=== PATIENT | female | born 1950 | race Caucasian/White ===

== ENCOUNTER 2016-05-07 17:00 | Inpatient (IN) | payer MEDICARE, MEDICAID ==
--- NOTE | 2016-05-07 17:14 | HP ---
SUPERVISING PHYSICIAN: Jorge Zuniga MD CHIEF COMPLAINT: Increase in peripheral edema to the lower bilateral extremities and low potassium. HISTORY OF PRESENT ILLNESS: Ms. Elaine is a 66-year-old, female patient who was referred from the clinic by Yolande Mcgee NP, for concern for hypokalemia. The patient was being seen in the walk-in clinic for lower extremity edema. Laboratory studies were completed showing that she had a potassium of 2.1. Yolande notified Dr. Lee of the findings who suggested the patient be admitted to the hospital for further examination, workup and replacement of potassium. The patient has not been under any medical care for many years. She takes no chronic medications. She notes in the s, she had some significant problems with her gallbladder when she had to have a cholecystectomy after a common bile duct stone had been passed and resulted in the gallbladder becoming infected and causing complications with both the gallbladder and liver requiring cholecystectomy with a quarter removal of one lobe of her liver at age 16. She also notes that after that surgery she had complications with some gastrointestinal bleeding, hiatal hernias, and what they that was gastric ulcers. In 1971, she had approximately 70% of her stomach removed with anastomosis to the small intestine. She thinks she had a hiatal hernia that perforated resulting in complications and therefore the surgery was completed. She notes since the surgery in 1971 she has had chronic diarrhea, but has learned to deal with it, but within the last several months, she has noticed she has been having some issues with the diarrhea and in the last two weeks noted that her legs had begun to start swelling. She denied any exertional dyspnea, chest pains, or palpitations. She also noted that she felt like her abdomen was increasing in size. She normally weighs just a little over 100 pounds and she says she has noted she has gained just under 20 pounds in the last two weeks. The patient also notes that at some point she was diagnosed with rheumatoid arthritis and has not been treated in multiple years due to complications of treatment she received when she was first diagnosed. She was referred to the hospital for direct admission. She was admitted to the Medical/Surgical Floor in stable condition for continuation of workup and treatment of the hypokalemia. PAST MEDICAL HISTORY: No chronic illnesses. She has not been under the care of a physician for many years. She reports the chronic diarrhea secondary to the complications of the surgery mentioned above in 1969 and 1971. PAST SURGICAL HISTORY: 1. Cholecystectomy, complications from a common bile duct stones. 2. Removal of a quarter of her liver at age 16 secondary to an infection and complications from gallbladder. 3. Gastrotomy with approximately 70% of stomach removed along with a hiatal hernia, complications from perforation with anastomosis to the small intestine in 1971. CURRENT MEDICATIONS: The patient denies any chronic medications or over-the- counter supplements or medications on a regular basis. She denies any use of Tylenol or NSAIDs. ALLERGIES: NO KNOWN DRUG ALLERGIES. FAMILY HISTORY: Positive for diabetes and rheumatoid arthritis. SOCIAL HISTORY: The patient lives in [place]. She is . 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 She notes she did smoke approximately three packs a day at a young age up until 1987 when she stopped smoking. She denies any alcohol or illicit drug use. REVIEW OF SYSTEMS: CONSTITUTIONAL: Denies any fevers, chills, but notes she has had an unintentional weight gain over the last two of a total of approximately 20 pounds. HEENT: Denies significant history of allergic rhinitis, epistaxis or sinus disease. No significant hearing or visual disturbances. RESPIRATORY: Denies any shortness of breath with exertion, cough , hemoptysis. CARDIOVASCULAR: Denies significant history of chest pain, palpitations, syncopal episodes or near syncopal episodes. GASTROINTESTINAL: As noted in history of present illness, chronic diarrhea secondary to partial gastrotomy in 1971, but no reported abdominal pains, nausea or vomiting. GENITOURINARY: Denies dysuria, but reports she has been having some decreased frequency at night and some incontinence. EXTREMITIES: Significant for increasing peripheral edema in the last two weeks extending proximally to the knees, but denies any other edema. There is no history of strokes or muscle weakness, but does note that she had arthritis, she says rheumatoid, at a younger age, but she no longer seeks treatment. NEUROLOGIC: Denies headaches, acute changes, visual disturbances, syncopal episodes or other neurologic deficits. PHYSICAL EXAMINATION: VITAL SIGNS: Temperature 98.8. Pulse 80. Blood pressure 182/83. Respirations 20, unlabored. O2 saturation 98% on room air. Admission weight 54.2 kg. GENERAL: The patient appears to be well-nourished, hydrated, well kept, in no apparent distress. HEENT: Tympanic membranes clear bilaterally. Oropharynx is pink, moist without any lesions. NECK: No jugular venous distention noted. CHEST: Lungs clear to auscultation bilaterally without any appreciable rhonchi, wheezes, or rales. CARDIOVASCULAR: Regular rate and rhythm with a systolic murmur noted, grade III /. ABDOMEN: Mildly distended, but soft with some tenderness to deep palpation to the mid abdomen area just below the umbilicus. No masses are felt. Positive bowel sounds. EXTREMITIES: 3+ pitting edema from feet to just below the patellar region with distal pulses being 2+ bilaterally. INTEGUMENTARY: No lesions noted. Skin is dry and pink. NEUROLOGIC: The patient is alert and oriented times three. Cranial nerves II- XII are grossly intact. Extraocular movements are within normal limits. There is no nystagmus. Facial features are symmetrical. There is no detectable motor deficits or reported sensory neuromotor deficits. LABORATORY: CBC shows white count 6.1, hemoglobin 12.2, hematocrit 35.7, platelet count 164,000, differential within normal limits. Coagulation studies show slightly elevated PT of 16.6, normal PT-T 33.7. Chemistries show a low sodium of 132, potassium decreased to 2.1, carbon dioxide 26, BUN less than 5, creatinine 0.69, glucose 126, calcium 7.9, bilirubin slightly elevated at 1.5, AST elevated at 55, ALT normal at 26, alkaline phosphatase normal at 110. CPK elevated at 196, troponin less than 0.02, serum total protein low at 5.5, albumin low at 2.0. Urine showed just a trace lysed blood on dipstick with microscopic being within normal limits. EKG shows normal sinus rhythm without any ST changes or T-wave inversions. RADIOLOGY: Two view chest x-ray per radiology interpretation shows no acute findings, no discrete air space infiltrates, pleural effusions, pneumothorax. There is note of bilateral interstitial prominence with pulmonary vascular normal. ASSESSMENT: 1. Electrolyte imbalance with severe hypokalemia and hypomagnesemia, unsure of etiology, possibly secondary to fluid overload, possibly secondary to some early liver dysfunction with an elevated AST and mildly elevated total bilirubin. 2. New onset peripheral edema with acute weight gain of approximately 20 pounds in the last two weeks with the patient having no history of congestive heart failure. 3. Moderate proteinemia with albumin 2.0, possibly contributing to #1, resulting in some third spacing in the presence of elevated liver function, history of previous liver surgery with the patient having some notable ascites on physical examination. 4. Elevated BNP with the patient having a systolic murmur, but no history of congestive heart failure. No echocardiogram for review. The patient without any significant exertional dyspnea. 5. Hypertension, uncontrolled. 6. History of rheumatoid arthritis. PLAN: The patient will be placed in observation tonight for close observation and replacement of her potassium and magnesium. She is asymptomatic at this time and has no shortness of breath. We will plan to give her 40 mg potassium through K-rider as tolerated as well as give her 2 grams of magnesium IV. The patient will need repeat laboratory studies in the morning for recheck of potassium. The patient will certainly need extensive followup on laboratory studies which possibly could be done in the outpatient setting if the patient seems to be stable at this time and has no significant complaints other than findings on examination demonstrated some mild abdominal discomfort with palpation which the patient was actually unaware that she had any pain until examination. Consideration for CT of the abdomen in the morning to further investigate the source of abdominal pain and certainly possibility of an echocardiogram and ultrasound of the liver at some point. She will need to be established with a primary care provider in the near future for close followup. She is stable at this point and anticipate length of stay to be one to two days with continuation of potassium and monitoring in the outpatient setting. Until discharge, we will continue to monitor the patient closely and treat appropriately. #[id number] [facility]
[2016-05-07] MEDS ORDERED: NITROGLYCERIN 0.4 MG 25 EA TAB SL PRN (17:53)
[2016-05-07] MEDS: IV SET AND CAP CHANGE INJ INJ SCH (18:28)
[2016-05-07] MEDS ORDERED: MAGNESIUM SULFATE PREMIX 2GM 2 GM in PREMIX BAG 1 BAG IVPB ONE (18:50)
[2016-05-07] MEDS ORDERED: MAGNESIUM SULFATE PREMIX 2GM 50 ML IVPB ONE (19:16)
[2016-05-07] MEDS ORDERED: KCL 40 MEQ/WATER FOR INJECTION 100 ML IVPB ONE (19:48)
--- NOTE | 2016-05-07 20:06 | RAD ---
EXAM DESCRIPTION: X-RAY CHEST- TWO VIEW CLINICAL HISTORY: Bilateral lower extremity edema. COMPARISON: None. TECHNIQUE: 2.0 views of the chest. FINDINGS: There is bilateral interstitial prominence, most likely chronic. The pulmonary vascularity is normal There are no discrete airspace infiltrates or pleural effusions. There are no pneumothoraces. A benign prominent left epicardial fat pad is seen on the frontal projection The cardiomediastinal contour is unremarkable. IMPRESSION: There are no acute findings on the two views of the chest Electronically signed by: Dilan Vanessa MD 05/07/2016 20:04
[2016-05-07] MEDS ORDERED: KCL 40 MEQ/WATER FOR INJECTION 40 MEQ in PREMIX BAG 1 BAG IVPB ONE (20:30)
[2016-05-07] MEDS: SODIUM CHLORIDE 0.9% (FLUSH) 10 ML SYG IV SCH (20:32)
[2016-05-07] MEDS: LISINOPRIL 5 MG TAB PO SCH (20:51)
[2016-05-07] MEDS ORDERED: SODIUM CHLORIDE 0.9% 500ML 500 ML ONE (21:20)
[2016-05-07] MEDS ORDERED: SODIUM CHLORIDE 0.9% 500ML 500 ML IVS PRN (21:49)
--- NOTE | 2016-05-08 01:21 | PCM.CORE ---
Physician DVT/VTE - Nurse DVT Assessment & Total Each Risk Factor Represents 2 Points: Age 60-74 DVT Assessment Score: 2 - 2 Moderate Risk Treatments: Early Ambulation *, Sequential Compression Device Pharmacological: Enoxaparin 40mg SQ Daily
[2016-05-08] MEDS ORDERED: ENOXAPARIN SODIUM 40 MG/0.4 ML SYG SUBCU SCH (01:30)
[2016-05-08] MEDS: LISINOPRIL 5 MG TAB PO SCH (08:56)
[2016-05-08] MEDS: SODIUM CHLORIDE 0.9% (FLUSH) 10 ML SYG IV SCH ×2 (08:57→20:40)
[2016-05-08] MEDS: ENOXAPARIN SODIUM 40 MG/0.4 ML SYG SUBCU SCH (08:57)
[2016-05-08] MEDS ORDERED: MAGNESIUM SULFATE PREMIX 2GM 2 GM in PREMIX BAG 1 BAG IVPB ONE ×2 (10:10→12:44)
[2016-05-08] MEDS ORDERED: KCL 40 MEQ/WATER FOR INJECTION 40 MEQ in PREMIX BAG 1 BAG IVPB ONE (10:10)
[2016-05-08] MEDS ORDERED: POTASSIUM CHLORIDE 20 MEQ TAB PO ONE ×2 (10:13→19:20)
[2016-05-08] MEDS ORDERED: MAGNESIUM SULFATE PREMIX 2GM 50 ML IVPB ONE ×2 (10:42→13:14)
[2016-05-08] MEDS ORDERED: KCL 40 MEQ/WATER FOR INJECTION 100 ML IVPB ONE (10:42)
[2016-05-08] MEDS ORDERED: SODIUM CHLORIDE 0.9% 250ML 250 ML IVS PRN (11:16)
--- NOTE | 2016-05-08 12:01 | PN ---
SUPERVISING PHYSICIAN: Franchesca Lee MD DATE: 05/08/16 SUBJECTIVE: The patient is lying in bed. She does complain of some pain where the potassium is infusing. Otherwise, she denies any shortness of breath, chest pain, abdominal pain, nausea or vomiting. She also denies any tachycardia or palpitations. OBJECTIVE: VITAL SIGNS: Afebrile. Pulse 72. Blood pressure 136/69. Respiratory rate 18. O2 sat 95%. Intake for the last 24 hours was 535 in and 150 mL out for a balance of -415 mL. GENERAL: This is a 66-year-old, female patient who is lying in her hospital bed. She is in no acute distress. CARDIAC : She has a systolic murmur noted that is probably a grade IV. Otherwise, regular rate and rhythm. LUNGS: Essentially clear to auscultation bilaterally. ABDOMEN: Soft, nontender, nondistended. No organomegaly. Bowel sounds are positive. EXTREMITIES: +2 to 3 pitting edema to the bilateral lower extremities. Pedal pulses are +2 bilaterally. NEUROLOGIC: Awake, alert and oriented times three. LABORATORY: Potassium 2.2, creatinine 0.6, calcium 7.4 although her corrected calcium is 9.4. Magnesium 1.3, bilirubin 1.4, direct bilirubin 0.5, indirect bilirubin 0.9. AST 44, WBC 6.3, hemoglobin 9.9, hematocrit 29.2, platelet count 146. All other labs and films have been reviewed via the EMR. ASSESSMENT: 1. Severe hypokalemia and hypomagnesemia in spite of replacement. 2. Hypoalbuminemia, may be related to her nutritional status and/or liver disease 3. New onset peripheral edema with acute weight gain of approximately 20 pounds in the last two weeks with the patient having no history of congestive heart failure. 4. Elevated liver enzymes with a history of abdominal surgery that may have included laceration of the liver. 5. Elevated BNP with systolic murmur and no history of congestive heart failure. There is no echocardiogram for review. 6. Hypertension, uncontrolled. 7. History of rheumatoid arthritis. PLAN: I have ordered hepatitis panel as well as a liver sonogram. I have also given her some p.o. potassium as well as some IV potassium and I have also give her some magnesium. Recheck her levels after those infusions are completed. At some point after discharge, she will need a full cardiac workup included an echocardiogram. Dr. Lee is her physician although she has not seen him yet. We will get him to do a full cardiology workup. I have not diuresed her yet in spite of her elevated BNP because I need to get her electrolytes corrected before we do some diuresis. At this point, she is asymptomatic and her vital signs are stable. We will continue to monitor her closely and followup as needed. She may need a CT of the abdomen depending on the results of the sonogram. At this point, we will continue to monitor the patient closely and followup as needed. Dr. Lee is the collaborating physician and available for consultation. #[id number] [facility]
--- NOTE | 2016-05-08 12:10 | US ---
EXAM DESCRIPTION: US LIVER CLINICAL HISTORY: elevated lfts COMPARISON: None. TECHNIQUE: Real-time sonographic images of the right upper quadrant of the abdomen are obtained. FINDINGS: Liver appears diffusely heterogeneous in echogenicity. Diffuse nodular appearance of the liver capsule is seen. The liver is small. The right lobe measures 12.5 cm diameter. Post cholecystectomy changes are seen. Common bile duct measures 9 mm diameter without obvious intrahepatic biliary ductal dilatation. Moderate ascites around the liver is seen. Pancreas is unremarkable. IMPRESSION: Heterogeneous, nodular appearing small liver consistent with cirrhosis. Moderate ascites around the liver is seen. The common bile duct is dilated measuring 9-10 mm. This may be secondary to patient's cholecystectomy. No obvious intrahepatic biliary ductal dilatation is seen. No obvious mass in the head of the pancreas is seen. Electronically signed by: Jacob Rodriguez MD 05/08/2016 12:08
[2016-05-08] MEDS ORDERED: SPIRONOLACTONE 25 MG TAB PO ONE (12:48)
[2016-05-09] MEDS: SODIUM CHLORIDE 0.9% (FLUSH) 10 ML SYG IV SCH ×2 (08:50→20:54)
[2016-05-09] MEDS: LISINOPRIL 5 MG TAB PO SCH (08:50)
[2016-05-09] MEDS: ENOXAPARIN SODIUM 40 MG/0.4 ML SYG SUBCU SCH (08:50)
[2016-05-09] MEDS ORDERED: MAGNESIUM SULFATE PREMIX 2GM 2 GM in PREMIX BAG 1 BAG IVPB ONE ×2 (09:56→09:57)
[2016-05-09] MEDS ORDERED: MAGNESIUM SULFATE PREMIX 4GM 4 GM in PREMIX BAG 1 BAG IVPB ONE (10:00)
[2016-05-09] MEDS: SPIRONOLACTONE 25 MG TAB PO SCH (10:31)
--- NOTE | 2016-05-09 10:41 | PN ---
SUPERVISING PHYSICIAN: Franchesca Lee MD DATE: 05/09/16 SUBJECTIVE: The patient is lying in her hospital bed. She has no complaints of chest pain, shortness of breath, palpitations. She complains of some right upper quadrant abdominal pain. She also complains that if she does not have something carbonated after her meals that she gets nauseated and has requested a Dr. Santos. She has been drinking DrDoyle Santoss for years. We discussed the results of her lung sonogram and she is aware that she has cirrhosis of the liver and that she will have close followup with Dr. Lee after discharge as well as Dr. Paredes for her electrolyte imbalances and then Dr. Lee will also refer her to a GI specialist at some point. OBJECTIVE: VITAL SIGNS: Afebrile. Heart rate 76. Blood pressure 136/69. Respiratory rate 18. O2 saturation 94% on 2 liters nasal cannula. I&Os show negative balance of 2 liters since admission. GENERAL: This is a 66-year-old female patient who is lying in her hospital bed. She is in no acute distress. LUNGS: Clear to auscultation bilaterally. CARDIAC: Regular rate and rhythm. She does have a grade III to IV systolic murmur. ABDOMEN: Soft, nondistended. Somewhat tender in the right upper quadrant although she does not have any rebound tenderness. Bowel sounds are positive. EXTREMITIES: No cyanosis or clubbing. She does have +1 edema to the bilateral lower extremities. NEUROLOGIC: Awake, alert and oriented times three. LABORATORY: White count is stable at 5.2. Hemoglobin and hematocrit are 10 and 29. Platelet count 146. Sodium 136, potassium 3.1, BUN less than 5, creatinine 0.17. Magnesium 1.5, total bilirubin 1.3, AST 44, serum total protein 4.4, albumin 1.6. Corrected calcium 9.4. Hepatitis panel is still pending. Liver ultrasound shows heterogeneous nodular appearing small liver consistent with cirrhosis, moderate ascites around the liver and common bile duct is dilated measuring 9 to 10 mm. That may be secondary to the patient's cholecystectomy. All other labs and films have been reviewed via the EMR. ASSESSMENT: 1. Severe hypokalemia and hypomagnesemia in spite of replacement. 2. Cirrhosis of the liver as per sonogram results. 3. Hypoalbuminemia. 4. New onset peripheral edema with acute weight gain of approximately 20 pounds in the last two weeks with the patient having no history of congestive heart failure. Given a dose of Spironolactone yesterday with good results. 5. Elevated liver enzymes, most likely due to cirrhosis and significant history of abdominal surgeries. 6. Elevated BNP with systolic murmur and no history of congestive heart failure. 7. Hypertension, uncontrolled. 8. History of rheumatoid arthritis. PLAN: I spoke with Dr. Paredes yesterday and we will aggressively correct her magnesium before correcting her potassium. She will get 4 grams of magnesium this morning and then I will start her on p.o. magnesium. We will recheck her potassium and magnesium levels after her infusion and then give her potassium. I have also ordered AM labs and also started daily Spironolactone. She will need a followup appointment with Dr. Paredes when she is discharged. I have discussed her case with Dr. Lee and he will get a GI workup when he sees her after discharge. We will continue to monitor the patient closely and followup as needed. #[id number] [facility]
[2016-05-09] MEDS: SODIUM CHLORIDE 0.9% (FLUSH) 10 ML SYG IV PRN (11:30)
[2016-05-09] MEDS ORDERED: POTASSIUM CHLORIDE 20 MEQ TAB PO ONE (13:50)
[2016-05-09] MEDS: MAGNESIUM CHLORIDE 64 MG TAB PO SCH (17:12)
[2016-05-10] MEDS: MAGNESIUM CHLORIDE 64 MG TAB PO SCH ×3 (07:45→17:12)
[2016-05-10] MEDS ORDERED: MAGNESIUM SULFATE PREMIX 2GM 2 GM in PREMIX BAG 1 BAG IVPB ONE (08:08)
[2016-05-10] MEDS ORDERED: MAGNESIUM SULFATE PREMIX 2GM 50 ML IVPB ONE (08:11)
[2016-05-10] MEDS: LISINOPRIL 5 MG TAB PO SCH (08:39)
[2016-05-10] MEDS: SPIRONOLACTONE 25 MG TAB PO SCH (08:39)
[2016-05-10] MEDS: ENOXAPARIN SODIUM 40 MG/0.4 ML SYG SUBCU SCH (08:39)
[2016-05-10] MEDS: SODIUM CHLORIDE 0.9% (FLUSH) 10 ML SYG IV SCH ×2 (08:40→20:58)
[2016-05-10] MEDS ORDERED: POTASSIUM CHLORIDE 20 MEQ TAB PO ONE (12:00)
[2016-05-10] MEDS ORDERED: LISINOPRIL 5 MG TAB PO ONE (12:13)
--- NOTE | 2016-05-10 13:21 | PN ---
DATE: 05/10/16 SUPERVISING PHYSICIAN: Gómez Lee M.D. SUBJECTIVE: The patient is sitting up in her bed. She states she feels much better. I explained to the patient that she has continued loss of potassium as well as magnesium. She understands and she knows she will have close followup with Dr. Paredes, Dr. Lee and a gastrointestinal doctor. OBJECTIVE: VITAL SIGNS: She is afebrile, pulse rate 71, blood pressure 158/88 but has gone up as high as 187/90, respiratory rate 18, O2 sat is 97% on room air. GENERAL: This is a 66 year-old female patient who is sitting in her hospital bed. She is in no acute distress. RESPIRATORY: Clear to auscultation bilaterally. CARDIAC: Regular rate and rhythm. There is a grade 3 to 4 systolic murmur. ABDOMEN: Soft, nondistended. Very mildly tender to the right upper quadrant. There is no rebound tenderness. Bowel sounds are positive. EXTREMITIES: No cyanosis or clubbing. There is a trace of pedal edema to bilateral lower legs. NEUROLOGIC: She is awake, alert and oriented times three. LABORATORY: CBC is basically within normal limits. Potassium this morning was 3.4, magnesium had dropped down to 1.4 in spite of giving 4 grams of magnesium yesterday. She was administered 2 grams of magnesium this morning and her potassium then went down to 3.1 and her magnesium came up to 2.3. All of her other labs are basically unchanged. All other labs and films have been reviewed via the EMR. ASSESSMENT: 1. Severe hypokalemia and hypomagnesemia in spite of replacement. 2. Cirrhosis of the liver as per sonogram results. 3. Hypoalbuminemia. 4. New onset of peripheral edema with acute weight gain that has somewhat resolved. She is presently on Spironolactone and the patient has no previous history of heart failure. 5. Elevated BNP with a systolic murmur and no history of congestive heart failure. 6. Hypertension uncontrolled. 7. History of rheumatoid arthritis. PLAN: We will continue to monitor her electrolytes closely. I will give her an additional potassium supplementation of 60 mEq this afternoon. I will recheck her potassium and magnesium at 9:00 PM. I have increased her Slow-Mag to 3 times daily as per Dr. Paredes's instructions. We should not replace her potassium until her magnesium is stable. I have not ordered any potassium to be given in the morning. We will wait and determine her K-Dur dosing after her magnesium and potassium are resulted in the morning. I will also need to increase her blood pressure medications as her blood pressure has gone up slightly over the last couple of days. She has a followup with Dr. Lee on Thursday. She will need an appointment with Dr. Paredes in the clinic the following Thursday and Dr. Lee will refer her to a GI specialist for her cirrhosis. Otherwise we will continue to monitor the patient closely and follow as needed. Dr. Lee is the supervising physician available for consultation. #[id number] [facility]
[2016-05-10] MEDS: IV SET AND CAP CHANGE INJ INJ SCH (17:59)
[2016-05-11] MEDS ORDERED: LISINOPRIL 10 MG TAB ONE (07:28)
[2016-05-11] MEDS ORDERED: POTASSIUM CHLORIDE 20 MEQ TAB PO SCH (07:30)
[2016-05-11] MEDS: MAGNESIUM CHLORIDE 64 MG TAB PO SCH ×3 (07:46→16:49)
[2016-05-11] MEDS: LISINOPRIL 10 MG TAB PO SCH (08:56)
[2016-05-11] MEDS: SPIRONOLACTONE 25 MG TAB PO SCH ×2 (08:56→20:52)
[2016-05-11] MEDS: SODIUM CHLORIDE 0.9% (FLUSH) 10 ML SYG IV SCH ×2 (08:56→20:52)
[2016-05-11] MEDS: ENOXAPARIN SODIUM 40 MG/0.4 ML SYG SUBCU SCH (08:56)
[2016-05-11] MEDS ORDERED: MAGNESIUM SULFATE PREMIX 2GM 2 GM in PREMIX BAG 1 BAG IVPB ONE (13:00)
[2016-05-11] MEDS ORDERED: MAGNESIUM SULFATE PREMIX 2GM 50 ML IVPB ONE (14:02)
[2016-05-11] MEDS: POTASSIUM CHLORIDE 20 MEQ TAB PO SCH ×2 (14:04→16:48)
[2016-05-11] MEDS: SODIUM CHLORIDE 0.9% (FLUSH) 10 ML SYG IV PRN (14:05)
--- NOTE | 2016-05-11 15:31 | PN ---
DATE: 05/11/16 SUBJECTIVE: The patient in many ways is doing quite well. She is fully awake and alert with a fair appetite. Of concern is the large volume of electrolyte supplementation that has been given to the patient over the last several days and with documented evidence of failure to raise potassium and magnesium levels. The patient does have a history of cirrhosis with Aldosterone possibly contributing and the Spironolactone is augmented. OBJECTIVE: Afebrile, pulse 64, blood pressure 173/92, pulse oximetry 96% on room air. Weight 53.9 kilos. GENERAL: The patient is awake, alert and oriented. LUNGS: Have a few rhonchi on lateral potter upon inspiration. HEART : Tones regular yet some slight extra systoles evident. ABDOMEN: Otherwise soft. LABORATORY: White count is 4,500 with 48% neutrophils, hemoglobin 10.3. Chemistries show potassium dropping since yesterday from 3.8 to 3.4. Creatinine normal at 0.68, glucose 89. Serum osmolality is low at 259, calcium 7.7 with albumin 1.8, magnesium has dropped from yesterday at 2.3 to 1.3 today even after magnesium parenterally administered. AST is elevated to 65. Bilirubin of 1.2. No cultures. ASSESSMENT: 1. Chronic cirrhosis of the liver with probable attendant complications. 2. Severe hypokalemia and hypomagnesemia in spite of significant parenteral supplementation and replacement requiring additional supplementation as well as medication approach to try to alleviate. 3. Hypoalbuminemia. 4. Hypocalcemia secondary to the hypoalbuminemia. 5. New onset of peripheral edema with acute weight gain that has been somewhat improved and the patient on Spironolactone with dose increased because of the possibility of underlying Aldosteronism. 6. Elevated BNP with systolic murmur and no history of congestive heart failure. 7. Hypertension poorly controlled. 8. History of rheumatoid arthritis. PLAN: Will continue with the magnesium sulfate administration as well as increase potassium chloride p.o. after meals and observe reevaluation in the morning. Continue to observe blood pressure in the meantime. Add additional medications if not improving. Reevaluate in the morning and consider outpatient therapy at that time as electrolytes hopefully are showing some improvement with the continued administration and supplementation. #[id number] [facility]
[2016-05-12] MEDS: MAGNESIUM CHLORIDE 64 MG TAB PO SCH ×2 (08:02→12:36)
[2016-05-12] MEDS: POTASSIUM CHLORIDE 20 MEQ TAB PO SCH ×2 (08:02→12:37)
[2016-05-12] MEDS: ENOXAPARIN SODIUM 40 MG/0.4 ML SYG SUBCU SCH (09:32)
[2016-05-12] MEDS: LISINOPRIL 10 MG TAB PO SCH (09:32)
[2016-05-12] MEDS: SPIRONOLACTONE 25 MG TAB PO SCH (09:32)
[2016-05-12] MEDS: SODIUM CHLORIDE 0.9% (FLUSH) 10 ML SYG IV SCH (09:34)
[2016-05-12 10:39] VITALS: BP 153/78; TEMP 97.2; O2SAT 95
--- NOTE | 2016-05-12 14:19 | DS ---
DISCHARGE DIAGNOSIS: 1. Chronic cirrhosis of the liver with attendant complications. 2. Hypokalemia and hypomagnesemia in spite of significant parenteral supplementation and replacement, requiring ongoing supplementation and followup. 3. Hypoalbuminemia. 4. Hypocalcemia with associated hypoalbuminemia. 5. New onset of peripheral edema with acute weight gain, improved on Spironolactone which will also assist the electrolyte disorder with underlying possibly aldosteronism. 6. Elevated beta natriuretic peptide with systolic murmur, yet no history of congestive heart failure. 7. Chronic hypertension. 8. History of rheumatoid arthritis. HISTORY OF PRESENT ILLNESS: This 66-year-old, white female was admitted to the hospital from the clinic where she was seen by Yolande Mcgee NP, and was noted to have fairly significant hypokalemia with potassium of 2.1. She was admitted to the hospital for more vigorous supplementation that could be done as an outpatient with the severity of the levels of low potassium as well as magnesium requiring repeat parenteral administration greater than average in order to get the levels up towards normal. This no doubt suggests a significant reservoir deficiency of both of these electrolytes in the patient's body. She was started on Spironolactone to assist with some of the probable elevated aldosterone secretion associated with the chronic cirrhosis, but she will also require further GI followup and evaluation. LABORATORY: White count initially 6,100. Hemoglobin dropped with hydration from 12.2 to 10.3. INR slightly elevated at 1.49. Chemistries started out with a potassium of 2.1 and was slowly up to 3.9, requiring fairly significant potassium supplementation. BUN was low and creatinine also normal. Glucose 105 fasting on day of discharge. Osmolality was also somewhat low at 260 and she might benefit by some fluid restrictions. Calcium is low, but also the laboratory is very low. Magnesium initially low at 1.3 and then with infusions , it came up and was still 1.3 at the time of discharge even with supplementation being given and supplementation to continue. Slight elevation of the AST up to 65 and CK elevated at 196, troponin 0, albumin low at 1.8 on discharge. Urinalysis showed some trace hematuria. Hepatitis A, B, C pending at time of discharge. No cultures. Liver ultrasound does reveal a small liver , consistent with cirrhosis with moderate ascites around the liver noticed. Chest x-ray revealed no acute findings on two view chest. HOSPITAL COURSE: The patient was actually feeling much improved at the time of discharge and was very ready to continue with outpatient management and followup. PLAN: Discharge home with followup with Dr. Lee towards the end of the week. Schedule an appointment with Dr. Paredes, hospital chief executive officer, on 05/21/16 at his clinic [facility]. Dr. Lee will also assist in setting up an appointment with GI clinic for cirrhosis evaluation. See home medications. Sent home on lisinopril 10 mg daily, #30, Slow Mag 128 mg t.i.d., #100, K-Dur 10 mEq b.i.d., #60 given, and Aldactone 25 mg b.i.d., #60 given. These medicines to be adjusted under Dr. Lee's observation. Dr. Lee will be checking blood and electrolytes through his clinic. Drink adequate fluids, yet try to limit excessive fluid intake to less than 1600 mL per 24 hours. Close followup of blood pressure in the clinic is important and stay active with walking. Return if not improving. #[id number] [facility]
== END 2016-05-12 13:50 | disposition home or self-care (01) | DRG 641 ==
LOC: MS 17:00
PROVIDERS: ADMIT Family Medicine; ATTEND Emergency Medicine
DX: E87.6 Hypokalemia (principal); E83.42 Hypomagnesemia; I10 Essential (primary) hypertension; E87.70 Fluid overload, unspecified; K74.60 Unspecified cirrhosis of liver; E88.09 Other disorders of plasma-protein metabolism, not elsewhere classified; E83.51 Hypocalcemia; R01.1 Cardiac murmur, unspecified; M06.9 Rheumatoid arthritis, unspecified; E26.9 Hyperaldosteronism, unspecified; R74.8 Abnormal levels of other serum enzymes

== ENCOUNTER → 2016-05-16 | Outpatient (CLI) | payer MEDICARE, OTHER | LOC: GMAM 10:15 | PROVIDERS: ATTEND Family Medicine | DX: R79.9 Abnormal finding of blood chemistry, unspecified (principal); D53.9 Nutritional anemia, unspecified ==

== ENCOUNTER → 2016-05-21 | Outpatient (CLI) | payer MEDICARE, MEDICAID | LOC: LAB.O 11:18 | PROVIDERS: ATTEND Internal Medicine Nephrology | DX: N18.4 Chronic kidney disease, stage 4 (severe) (principal); R53.81 Other malaise ==

== ENCOUNTER → 2016-05-29 | Outpatient (CLI) | payer MEDICARE, MEDICAID ==
--- NOTE | 2016-05-29 12:20 | CT ---
EXAM DESCRIPTION: Abdomen and pelvis CT. CLINICAL HISTORY: Abnormal LFTs COMPARISON: None. TECHNIQUE: Volumetric CT of abdomen without contrast was performed. FINDINGS: The liver shrunken measuring 10 cm in diameter. The liver also demonstrates a subtle nodular contour. The spleen is normal in size measuring 8.6 cm in diameter. Bilateral adrenal glands are unremarkable. Bilateral kidneys are unobstructed. Pancreatic calcifications noted likely secondary to previous bouts of pancreatitis. Atherosclerotic disease noted. Negative for aneurysm. The incompletely imaged small bowel and colon are unobstructed. IMPRESSION: Query hepatic cirrhosis as the contour of the liver is nodular. There are a few vessels noted inferior to the right hepatic lobe which are likely collateral vessels from portal hypertension. No inflammatory changes seen within the abdomen. Electronically signed by: Silvio Antonio MD 05/29/2016 12:18
== END ==
LOC: CT 09:34
PROVIDERS: ATTEND Internal Medicine Nephrology
DX: N18.4 Chronic kidney disease, stage 4 (severe) (principal); R79.89 Other specified abnormal findings of blood chemistry

== ENCOUNTER → 2016-06-02 | Outpatient (CLI) | payer MEDICARE, OTHER | END | disposition home or self-care (01) | LOC: GMAM 17:48 | PROVIDERS: ATTEND Family Medicine | DX: E87.6 Hypokalemia (principal) ==

== ENCOUNTER → 2016-06-19 | Outpatient (CLI) | payer MEDICARE, MEDICAID | END | disposition home or self-care (01) | LOC: LAB.O 06-18 11:14 | PROVIDERS: ATTEND Internal Medicine Gastroenterology | DX: R74.0 Nonspecific elevation of levels of transaminase and lactic acid dehydrogenase [LDH] (principal); K74.0 Hepatic fibrosis; M06.9 Rheumatoid arthritis, unspecified ==

== ENCOUNTER → 2016-07-09 | Outpatient (CLI) | payer MEDICARE, MEDICAID | END | disposition home or self-care (01) | LOC: LAB.O 10:21 | PROVIDERS: ATTEND Internal Medicine Gastroenterology | DX: R74.0 Nonspecific elevation of levels of transaminase and lactic acid dehydrogenase [LDH] (principal) ==

== ENCOUNTER 2016-08-20 13:15 | Day surgery (SDC) | payer MEDICARE, MEDICAID ==
[2016-08-20] MEDS ORDERED: KCL 40 MEQ/WATER FOR INJECTION 100 ML IVPB ONE (14:07)
[2016-08-20] MEDS ORDERED: SODIUM CHLORIDE 0.9% 100ML 100 ML IVPB ONE (14:09)
[2016-08-20] MEDS ORDERED: SODIUM CHLORIDE 0.9% 250ML 250 ML ONE (14:09)
[2016-08-20] MEDS ORDERED: MAGNESIUM SULFATE INJ 1 GM/2 ML VIAL ONE (14:09)
[2016-08-20] MEDS ORDERED: MAGNESIUM SULFATE INJ 1 GM/2 ML VIAL IVPB ONE (14:23)
[2016-08-20] MEDS ORDERED: POTASSIUM CHLORIDE 40mEq 20ML VIAL IVPB ONE (14:44)
[2016-08-20 17:02] VITALS: BP 142/78; TEMP 98; O2SAT 98
== END 2016-08-20 19:05 | disposition home or self-care (01) ==
LOC: AMB 13:15
PROVIDERS: ATTEND Family Medicine
DX: E83.42 Hypomagnesemia (principal); E87.6 Hypokalemia
CPT/HCPCS: 83735; 83970; 84100; 84550; 96361; 96365; G0463; J3475; J3480; J7050

== ENCOUNTER → 2016-08-21 | Outpatient (CLI) | payer MEDICARE, MEDICAID | LOC: GMAM 14:46 | PROVIDERS: ATTEND Family Medicine | DX: E87.6 Hypokalemia (principal) ==

== ENCOUNTER 2016-08-22 07:00 | Day surgery (SDC) | payer MEDICARE, MEDICAID ==
[2016-08-22] MEDS ORDERED: SODIUM CHLORIDE 0.9% 250ML 250 ML ONE (12:43)
[2016-08-22] MEDS ORDERED: MAGNESIUM SULFATE PREMIX 2GM 50 ML IVPB ONE (13:00)
[2016-08-22] MEDS ORDERED: SODIUM CHLORIDE 0.9% IVPB ONE (13:00)
[2016-08-22] MEDS ORDERED: POTASSIUM CHLORIDE IVPB ONE (13:00)
== END 2016-08-22 13:35 | disposition home or self-care (01) ==
LOC: AMB 07:00
PROVIDERS: ATTEND Family Medicine
DX: E83.42 Hypomagnesemia (principal); E87.6 Hypokalemia
CPT/HCPCS: 96374; 96375; G0463; J3475; J3480; J7050

== ENCOUNTER 2016-09-01 11:17 | Inpatient (IN) | payer MEDICARE, MEDICAID ==
[2016-09-01] MEDS ORDERED: LIDOCAINE VIS-MYLANTA 30 ML UD PO ONE (11:29)
[2016-09-01] MEDS ORDERED: SODIUM CHLORIDE 0.9% 1000ML 1,000 ML IVS ONE (11:29)
[2016-09-01] MEDS ORDERED: POTASSIUM CHLORIDE ELIXIR 20 MEQ/15 ML UD PO ONE (12:27)
[2016-09-01] MEDS ORDERED: POTASSIUM CHLORIDE INJ 40 MEQ 40 MEQ in SODIUM CHLORIDE 0.9% 250ML 250 ML IVPB ONE (12:28)
[2016-09-01] MEDS ORDERED: SODIUM CHLORIDE 0.9% 250ML 250 ML ONE (12:39)
[2016-09-01] MEDS ORDERED: POTASSIUM CHLORIDE 40mEq 20ML VIAL ONE ×2 (12:40→16:56)
[2016-09-01] MEDS ORDERED: MAGNESIUM SULFATE PREMIX 2GM 2 GM in PREMIX BAG 1 BAG IVPB ONE (13:34)
[2016-09-01] MEDS ORDERED: MAGNESIUM SULFATE PREMIX 2GM 50 ML IVPB ONE (13:56)
--- NOTE | 2016-09-01 14:14 | RAD ---
EXAM DESCRIPTION: Abdomen Series CLINICAL HISTORY: 66 years,Female,n/v hx of multiple bowel resections. hx cirrhosis COMPARISON: None FINDINGS: Bowel gas pattern is nonspecific. There is no evidence of free air or significant air-fluid levels. Bony elements are unremarkable. No evidence of radiopaque stones along the course of the kidneys or ureters. Resection of the left rib IMPRESSION: Unremarkable flat upright abdomen. Electronically signed by: Sae Zarate MD 09/01/2016 2:14 PM CDT
--- NOTE | 2016-09-01 14:26 | ED.PDOC ---
History of Present Illness - General Chief Complaint: GI Problem Stated Complaint: NAUSEA AND VOMITING Time Seen by Provider: 09/01/16 11:21 Source: patient Exam Limitations: no limitations - History of Present Illness Initial Comments: the patient is a 66-year-old female presenting to the emergency room secondary to nausea and vomiting. She has been throwing up for at least the last couple of days. She has a history of electrolyte disorder including hypokalemia and hypomagnesemia. She sees Dr. Haider. She is having some abdominal cramping but no pain between the cramping. She's had a history of multiple abdominal surgeries. She reports that she is supposed to be on multiple medications but doesn't take them. Timing/Duration: 24 hours Severity: moderate Improving Factors: nothing Worsening Factors: nothing Associated Symptoms: loss of appetite, malaise, nausea/vomiting, weakness Allergies/Adverse Reactions: Allergies Latex Adverse Reaction (Verified 09/01/16 11:19) Home Medications: Ambulatory Orders NK [NK] 08/20/16 Review of Systems - Review of Systems Constitutional: States: malaise EENTM: States: no symptoms reported Respiratory: States: no symptoms reported Cardiology: States: no symptoms reported Gastrointestinal/Abdominal: States: abdominal pain, nausea, vomiting Genitourinary: States: no symptoms reported Musculoskeletal: States: muscle pain Skin: States: no symptoms reported Neurological: States: anxiety Endocrine: States: no symptoms reported All other Systems: No Change from Baseline Past Medical History (General) - Patient Medical History Hx Seizures: No Hx Stroke: No Hx Dementia: No Hx Asthma: No Hx of COPD: No Hx Cardiac Disorders: No Hx Congestive Heart Failure: No Hx Pacemaker: No Hx Hypertension: No Hx Thyroid Disease: No Hx Diabetes: No Hx Gastroesophageal Reflux: No Hx Renal Disease: No Hx Cancer: No Hx of HIV: No Hx Hepatitis C: Yes Hx MRSA: No - Vaccination History Hx Tetanus, Diphtheria Vaccination: No Hx Influenza Vaccination: No Hx Pneumococcal Vaccination: No Immunizations Up to Date: No - Social History Hx Tobacco Use: No Hx Chewing Tobacco Use: No Hx Alcohol Use: No Hx Substance Use: No Hx Substance Use Treatment: No Hx Depression: No Feels Threatened In Home Enviroment: No Feels Threatened In a Relationship: No Hx Physical Abuse: No Hx Emotional Abuse: No Hx Suspected Abuse: No - Female History Patient is a Female of Child Bearing Age (10 -59 yrs old): No Patient : No Family Medical History - Family History Daughter Family History: No Known Living Status: Physical Exam - Physical Exam General Appearance: Alert, Anxious Eye Exam: bilateral normal Ears, Nose, Throat: hearing grossly normal, normal ENT inspection, normal pharynx Neck: non-tender, full range of motion, supple Respiratory: chest non-tender, lungs clear, normal breath sounds, no respiratory distress, no accessory muscle use Cardiovascular/Chest: normal peripheral pulses, no edema, tachycardia - appears to be sinus tachycardia Peripheral Pulses: radial,right: 2+, radial,left: 2+ Gastrointestinal/Abdominal: soft, other - mild epigastric discomfort palpation Rectal Exam: deferred Back Exam: normal inspection, no CVA tenderness Extremity: normal range of motion, non-tender, normal inspection, no pedal edema , normal capillary refill Neurologic: alert, oriented x 3 - the patient is anxious. The patient moans a lot however when she is distracted and you're talking to her she does not really seem to be in much pain at all. Skin Exam: normal color Comments: Vital Signs - 24 hr 09/01/16 09/01/16 09/01/16 11:20 12:08 13:10 Temperature 98 F 98 F Pulse Rate [ 103 H 106 H 105 H Left Radial] Respiratory 20 20 20 Rate Blood Pressure 155/92 108/62 162/84 [Left Radial Artery] O2 Sat by Pulse 98 99 100 Oximetry 09/01/16 13:52 Temperature Pulse Rate [ 115 H Left Radial] Respiratory 22 Rate Blood Pressure 136/86 [Left Radial Artery] O2 Sat by Pulse Oximetry Progress - Progress Progress: 09/01/16 14:27 the patient is 66-year-old female presenting to the emergency room secondary to recurrent nausea and vomiting with cramping type abdominal discomfort. She appears to have recurrent hypokalemia and hypomagnesemia. She is getting IV supplementation for these currently. She has received a liter of IV fluids as well. The patient also has an elevation in her ammonia level consistent with her cirrhosis. The patient will be admitted for correction of her electrolyte issues. Source of the electrolyte disturbance is not certain. Her noncompliance with the medications to treat it is certainly complicating the problem. No evidence of significant arrhythmia otherwise at this time. - Results/Orders Results/Orders: 09/02/16 11:30 EKG STAT sinus tachycardia. Left axis deviation with poor R-wave progression in anterior leads. No acute ST segment changes concerning for ischemia. Laboratory Results - last 24 hr 09/01/16 09/01/16 09/01/16 11:50 11:50 11:50 WBC 5.9 RBC 3.66 L Hgb 11.9 L Hct 34.8 L MCV 95.3 MCH 32.5 H MCHC 34.3 RDW 16.3 H Plt Count 167 MPV 7.4 Absolute Neuts (auto) 4.50 Absolute Lymphs (auto) 0.70 L Absolute Monos (auto) 0.60 Absolute Eos (auto) 0.00 Absolute Basos (auto) 0.00 Neutrophils % 77.3 Lymphocytes % 12.2 L Monocytes % 9.6 H Eosinophils % 0.4 L Basophils % 0.5 PT 20.6 H* INR 1.830 PTT (SP) 40.4 H Sodium 130 L Potassium 2.2 L* Chloride 95 L Carbon Dioxide 23 Anion Gap 14.2 BUN < 5 L Creatinine 0.92 BUN/Creatinine Ratio 5.4 L Random Glucose 114 H Serum Osmolality 257.8 L Calcium 7.7 L Magnesium 1.0 L Total Bilirubin 2.9 H* AST 67 H ALT 30 Alkaline Phosphatase 131 H Ammonia Creatine Kinase 141 H CK-MB (CK-2) 5.6 H* CK-MB (CK-2) % 3.97 Troponin I < 0.02 Serum Total Protein 6.1 L Albumin 2.1 L Globulin 4.0 H Albumin/Globulin Ratio 0.5 L Amylase 87 Lipase 34 TSH 1.93 09/01/16 11:50 WBC RBC Hgb Hct MCV MCH MCHC RDW Plt Count MPV Absolute Neuts (auto) Absolute Lymphs (auto) Absolute Monos (auto) Absolute Eos (auto) Absolute Basos (auto) Neutrophils % Lymphocytes % Monocytes % Eosinophils % Basophils % PT INR PTT (SP) Sodium Potassium Chloride Carbon Dioxide Anion Gap BUN Creatinine BUN/Creatinine Ratio Random Glucose Serum Osmolality Calcium Magnesium Total Bilirubin AST ALT Alkaline Phosphatase Ammonia 62 H* Creatine Kinase CK-MB (CK-2) CK-MB (CK-2) % Troponin I Serum Total Protein Albumin Globulin Albumin/Globulin Ratio Amylase Lipase TSH nonspecific acute abdominal series. No evidence of obstruction. Departure - Departure Clinical Impression: Hypokalemia, Hypomagnesemia Vomiting Qualifiers: Vomiting type: unspecified Vomiting Intractability: non-intractable Nausea presence: with nausea Qualified Code(s): R11.2 - Nausea with vomiting, unspecified Disposition: Admit Patient Departure Forms: ED Discharge - Pt. Copy, Patient Portal Self Enrollment Referrals: Gómez Lee MD [Primary Care Provider] - 1-2 Weeks Home Medications: Ambulatory Orders NK [NK] 08/20/16 Decision To Admit - Decistion To Admit Decision to Admit Reason: Medical Nature Decision to Admit Date: 09/01/16 Decision to Admit Time: 14:29
--- NOTE | 2016-09-01 15:24 | HP ---
SUPERVISING PHYSICIAN: Jorge Zuniga M.D. CHIEF COMPLAINT: Nausea and vomiting. HISTORY OF PRESENT ILLNESS: Ms. Elaine is a 66 year-old female with a significant history of persistent hyponatremia, hypokalemia and hypomagnesemia secondary to nonalcoholic cirrhosis of the liver, chronic low albumin with stable renal function. She also has a history of compulsive drinking of water and is followed closely by Dr. Lee and Dr. Dexter Paredes. Today, she presented to the Emergency Department secondary to nausea and vomiting. She had been throwing up for the last several days. She notes she has been having some abdominal cramping but no significant pain. She has had a significant surgical history with removal of a quarter of her liver secondary to infection as well as a gastrotomy with approximately 70% of her stomach removed secondary to complications from a perforation from a small intestine surgery in 1971. Laboratory studies today showed that she had a severe hypokalemia with potassium 2.2 and a moderate hyponatremia of 130 with a severely low magnesium of 1.0. She is supposed to be taking magnesium replacement but is unable to fully benefit as she is unable to tolerate the p.o. medications and requires periodic infusions of magnesium and potassium to correct underlying potassium and magnesium levels. Given her significant electrolyte imbalance today in the Emergency Department, she was started on potassium replacement with 40 mEq as well as given 2 grams of magnesium. She is now going to be admitted to the hospital for telemetry and further continuation of workup and treatment of the hypokalemia and hypomagnesemia. PAST MEDICAL HISTORY: 1. Hepatic fibrosis. 2. Chronic viral hepatitis C. 3. Rheumatoid arthritis. 4. Hypertension. 5. History of peripheral edema secondary to low albumin. 6. Hyperbilirubinemia secondary to cirrhosis. 7. Hypoalbuminemia secondary to cirrhosis. 8. Anemia of chronic disease. 9. Recurrent hypokalemia and recurrent hypomagnesemia. PAST SURGICAL HISTORY: 1. Cholecystectomy and complications from common bile duct stone. 2. Removal of a quarter of her liver at age 16 secondary to an infection and complications from gallbladder surgery. 3. Gastrotomy with approximately 70% of her stomach removed along with hiatal hernia complications from perforation from anastomosis to the small intestine in 1971. CURRENT MEDICATIONS: 1. Lisinopril 20 mg daily. 2. Potassium chloride 20 mEq orally. 3. Slow-Mag 75.1 mg/119 magnesium delayed release daily. ALLERGIES: NO KNOWN DRUG ALLERGIES. FAMILY HISTORY: Positive for diabetes and rheumatoid arthritis. SOCIAL HISTORY: The patient currently lives in [place]. She is . 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 She notes that she did smoke approximately 3 packs a day at a young age until 1987 when she stopped smoking. She denies any alcohol or illicit drug use. REVIEW OF SYSTEMS: CONSTITUTIONAL: Notes malaise but no fevers or chills. HEENT: Denies any significant history of allergic rhinitis, epistaxis or sinus disease. No significant hearing or visual disturbances. RESPIRATORY: Denies any shortness of breath on exertion, cough or hemoptysis. CARDIOVASCULAR: Denies any significant history of chest pain, palpitations, syncopal episodes or near syncopal episodes. GASTROINTESTINAL: As noted in the History of Present Illness, chronic diarrhea secondary to partial gastrotomy in 1971 but no significant abdominal pain, but is positive for nausea and vomiting prior to admission. GENITOURINARY: Denies any dysuria but does report that she has some urinary incontinence. EXTREMITIES: She has a history of peripheral edema which on this admission was not noted secondary to excessive fluid intake from water drinking. NEUROLOGIC: She denies any headaches, acute changes or visual disturbances, syncopal episodes or other neurological deficits. PHYSICAL EXAMINATION: VITAL SIGNS: Temperature 97.6, pulse 96, blood pressure 120/78, respirations 20 , satting 95% on room air. Admission weight 51.5 kg which is down from previous admission of 54.2 kg. GENERAL: The patient on admission to the Medical/Surgical floor was alert. She appears to be in no acute distress. She is well nourished, well kempt. HEENT: Tympanic membranes are clear bilaterally. Oropharynx is pink and moist without any lesions. NECK: Supple, non-tender with full range of motion. There is no jugular venous distention. CHEST: Lungs are clear to auscultation bilaterally without any rhonchi, wheezing or rales. CARDIOVASCULAR: Regular rate and rhythm without appreciable murmurs, gallops, or rubs, although is noted to be sinus tachycardia on the monitor. ABDOMEN: Soft, non-tender with just some mild epigastric discomfort, but no rebound tenderness. EXTREMITIES: No clubbing, cyanosis or edema. NEUROLOGIC: She is alert and oriented times three. Cranial nerves II-XII are grossly intact. Facial features are symmetric. Extraocular movements are within normal limits. There is no nystagmus noted. There are no notable localizing or lateralizing neuromotor deficits. LABORATORY STUDIES: White count on admission was 5.9, hemoglobin 11.98, hematocrit 34.8, platelet count 167,000. Differential shows to be without a left shift. Coagulation studies showed an elevated PT of 20.6 with PTT of 40.4. Chemistries showed sodium 130, potassium 2.2, chloride 95, carbon dioxide was normal at 23, anion gap was normal at 14.2, BUN was less than 5, creatinine 0.92, glucose 114, serum osmolality 257, calcium 7.7, magnesium 1.0. Total bilirubin 2.9, AST elevated at 67, ALT normal, alkaline phosphatase 131. Ammonia was elevated at 62. CPK was elevated at 141, troponin less than 0.02. Total protein was low at 6.1, albumin low at 2.1, amylase and lipase were both normal. TSH was normal. Urinalysis showed just a trace of blood on the dipstick, small amount of bilirubin with urobilinogen greater than 8. Microscopic showed to be within normal limits. RADIOLOGY: Abdominal x-ray in the Emergency Department prior to admission showed a nonspecific bowel gas pattern. There was no evidence of free air or significant air-fluid levels. There was no evidence of radiopaque stones along the course of the kidneys or ureters. Impression was unremarkable flat and upright abdomen. ASSESSMENT: 1. Electrolyte imbalance with severe hypokalemia and hypomagnesemia with the patient having a history of chronic low potassium and low magnesium which is felt to be secondary to excessive water intake and ongoing liver dysfunction. 2. History of hepatic fibrosis. 3. History of chronic viral hepatitis C. 4. Hypertension. 5. Rheumatoid arthritis. 6. Anemia of chronic disease. 7. Elevated liver function and coagulation studies likely secondary to ongoing hepatic fibrosis and cirrhosis, likely nonalcoholic cirrhosis of the liver. 8. Hyponatremia probably secondary to cirrhosis and compulsive water drinking. 9. History of thrombocytopenia although with a normal platelet count on admission. 10. Persistent nausea and vomiting, unsure etiology, possibly secondary to previous gastrotomy or underlying early viral enteritis. 11. Elevated ammonia levels likely secondary to ongoing liver cirrhosis. PLAN: The patient will be admitted to the hospital for treatment of her hypokalemia, hyponatremia and hypomagnesemia. She will be put on telemetry. Will replace her magnesium with an additional 4 grams tonight IV and an additional 40 mEq of potassium along with the 40 of potassium they gave in the Emergency Department. She has no central venous access, therefore both magnesium and potassium will have to be given slow. Will put her on maintenance IV fluids to help correct the low sodium with normal saline and an additional 40 mEq of potassium at 75 mL an hour. Will anticipate length of stay to be at least 2 to 3 days. Will control her nausea and vomiting hopefully with Zofran and restrict her fluid to less than 1500 mL a day. She was here previously earlier in the year and required almost 18 grams of magnesium prior to fully correcting the underlying hypomagnesemia and hypokalemia. I did touch base with Dr. Paredes who was in agreement to current plan of care. Will repeat laboratory studies in the morning to include a CBC, CMP, ammonia and again touch base with Dr. Paredes. Until discharge, will continue to monitor the patient closely and treat appropriately. #[id number] [facility]
[2016-09-01] MEDS ORDERED: MAGNESIUM SULFATE PREMIX 4GM 4 GM in PREMIX BAG 1 BAG IVPB ONE (16:04)
[2016-09-01] MEDS ORDERED: SPIRONOLACTONE 25 MG TAB PO ONE (16:06)
[2016-09-01] MEDS ORDERED: IV SET AND CAP CHANGE INJ INJ SCH (16:30)
[2016-09-01] MEDS ORDERED: SODIUM CHLORIDE 0.9% 1000ML 1,000 ML ONE (16:56)
[2016-09-01] MEDS ORDERED: MAGNESIUM SULFATE PREMIX 4GM 50 ML IVPB ONE (17:15)
[2016-09-01] MEDS: ONDANSETRON INJ 4 MG/2 ML VIAL IV PRN (17:21)
[2016-09-01] MEDS: KCL 40MEQ/NS 1,000 ML IVS PRN (17:22)
[2016-09-02] MEDS: SODIUM CHLORIDE 0.9% (FLUSH) 10 ML SYG IV PRN (00:53)
[2016-09-02] MEDS: ONDANSETRON INJ 4 MG/2 ML VIAL IV PRN ×2 (00:54→21:58)
[2016-09-02] MEDS ORDERED: SODIUM CHLORIDE 0.9% 1000ML 1,000 ML ONE (05:56)
[2016-09-02] MEDS ORDERED: POTASSIUM CHLORIDE 40mEq 20ML VIAL ONE ×2 (05:56→11:14)
[2016-09-02] MEDS: KCL 40MEQ/NS 1,000 ML IVS PRN (06:03)
[2016-09-02] MEDS ORDERED: POTASSIUM CHLORIDE INJ 40 MEQ 40 MEQ in SODIUM CHLORIDE 0.9% 250ML 250 ML IVPB ONE (09:31)
[2016-09-02] MEDS ORDERED: SODIUM CHLORIDE 0.9% 250ML 250 ML ONE (11:14)
[2016-09-02] MEDS: MORPHINE SULFATE INJ 10 MG/ML VIAL IV PRN ×2 (11:31→21:57)
[2016-09-02] MEDS: METOPROLOL TARTRATE INJ 5 MG/5 ML VIAL IV SCH ×2 (14:55→19:48)
--- NOTE | 2016-09-02 17:25 | PN ---
DATE: 09/02/16 SUPERVISING PHYSICIAN: Gómez Lee M.D. SUBJECTIVE: The patient is resting in bed. She is having a little bit of nausea but no diarrhea. She does have some intermittent emesis. She remains afebrile. OBJECTIVE: VITAL SIGNS: Temperature 98.9, pulse 133, blood pressure 170/84, respirations 20, O2 sat 96% on room air. CHEST: Lungs are clear to auscultation. HEART: Tachy rhythm on the monitor but no notable murmurs or rubs. ABDOMEN: Soft, non-tender. Positive bowel sounds. EXTREMITIES: No clubbing, cyanosis or edema. NEUROLOGIC: She is alert and oriented. LABORATORY: White count today is 11.5, hemoglobin 12.6, hematocrit 37.1, platelet count 180,000. Differential does show a left shift. Chemistries today show an improved sodium and potassium with sodium 133, potassium 3.3, magnesium now is normalized. Carbon dioxide is 20 with anion gap remaining within normal limits. BUN is less than 5, creatinine 0.92. Liver functions show an improved pneumonia today at 41 with AST still elevated at 70, ALT normal , alkaline phosphatase 142. ASSESSMENT: 1. Electrolyte imbalance with severe hypokalemia and hypomagnesemia with the patient having a history of chronic low potassium and low magnesium felt to be secondary to excessive water intake and ongoing liver dysfunction showing improvement with normalized magnesium and much improved potassium after IV supplementation. 2. Hypertension and tachycardia possibly related to pain as the patient is on no current medications for rate control or blood pressure. 3. History of hepatic fibrosis. 4. History of chronic viral hepatitis. 5. Hypertension. 6. Rheumatoid arthritis. 7. Anemia of chronic disease. 8. 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 9. Hyponatremia probably secondary to cirrhosis and compulsive water drinking. 10. History of thrombocytopenia although with normal platelet count on admission. 11. Persistent nausea and vomiting although improved after IV fluids. Still unknown etiology with the patient having a previous gastrotomy and possibly underlying viral enteritis pending gastrointestinal consultation. 12. Elevated ammonia levels, although improving likely secondary to ongoing liver cirrhosis. PLAN: Will continue with potassium replacement today as her magnesium has normalized. Will continue with IV fluids and a K-rider. She is set to have an EGD in the morning. She will be made NPO tonight. Will try some pain medicine with morphine as she is unable to really swallow any pills and benefit from those as she cannot keep any pills down, therefore will try the morphine to see if this will assist with her hypertension and her tachy rhythm. If this fails to show any improvement, will start with low dose Metoprolol IV and closely monitor. Will continue with Zofran as needed and to limit fluid to less than 1500 mL. Anticipate possible discharge tomorrow once potassium has normalized and after she has had an EGD. Until then, continue to monitor the patient closely and treat appropriately. #[id number] [facility]
--- NOTE | 2016-09-02 19:13 | PCM.CORE ---
Physician DVT/VTE - Contraindications Medication Contraindication: Complication of Medical Care - has EGD in AM - Nurse DVT Assessment & Total Each Risk Factor Represents 2 Points: Age 60-74 Each Risk Factor Represents 1 Point: Medical PT at Bed Rest DVT Assessment Score: 3 - 5 or more Very High Risk Treatments: Early Ambulation *, Sequential Compression Device
[2016-09-03] MEDS: METOPROLOL TARTRATE INJ 5 MG/5 ML VIAL IV SCH ×4 (01:38→20:18)
[2016-09-03] MEDS: LACTULOSE SYRUP 20 GM/30 ML UD PO SCH ×3 (12:18→21:12)
[2016-09-03] MEDS: MORPHINE SULFATE INJ 10 MG/ML VIAL IV PRN (15:34)
[2016-09-03] MEDS: ONDANSETRON INJ 4 MG/2 ML VIAL IV PRN (15:52)
[2016-09-03] MEDS ORDERED: SUCRALFATE 1 GM TAB PO ONE (15:54)
[2016-09-03] MEDS: SUCRALFATE 1 GM/10 ML 1 GM UD PO SCH ×2 (15:55→21:13)
[2016-09-03] MEDS ORDERED: PROMETHAZINE HCL INJ 25 MG in SODIUM CHLORIDE 0.9% 50ML 50 ML IVPB ONE (18:36)
[2016-09-03] MEDS ORDERED: PROMETHAZINE HCL INJ 25 MG/ML VIAL ONE (18:44)
[2016-09-03] MEDS ORDERED: SODIUM CHLORIDE 0.9% 50ML 50 ML ONE (18:44)
--- NOTE | 2016-09-03 19:24 | PN ---
DATE: 09/03/16 SUPERVISING PHYSICIAN: Gómez Lee M.D. SUBJECTIVE: The patient is lying in bed. She has a very difficult time answering questions but she does complain of nausea. She does cry quite a bit and it is very difficult to get any information from her. It was reported that she had thrown up several times today. She had gotten a dose of Zofran. I will start her on some Carafate, but she continues to complain of nausea although I have seen no vomiting. OBJECTIVE: VITAL SIGNS: She is afebrile, pulse 98, blood pressure 122/69, respiratory rate 20, O2 sat is 94%. RESPIRATORY: Clear to auscultation bilaterally. CARDIAC: Regular rate and rhythm. ABDOMEN: Soft, non-tender. Bowel sounds are positive. EXTREMITIES: No cyanosis, clubbing or edema. NEUROLOGIC: She is awake. She is alert. She is oriented to person and place only. LABORATORY: White count has elevated to 19.4 with neutrophils of 82.8. Hemoglobin 12.1, hematocrit 36. INR is 2.2. Electrolytes have stabilized with sodium 137, potassium 4.6, chloride 107, carbon dioxide 27. Bilirubin has improved some from 3 yesterday to 2.2 today. AST was 70 yesterday and today is 57. Ammonia has gone up to 103 from 41 yesterday. All other labs and films have been reviewed via the EMR. ASSESSMENT: 1. Electrolyte imbalance with severe hypokalemia and hypomagnesemia on admission. The patient has a history of chronic low potassium and low magnesium felt to be secondary to excessive water intake and ongoing liver dysfunction. Electrolytes today are within normal limits. 2. Hypertension and tachycardia possibly related to pain as the patient is on no current medications for rate control or blood pressure. 3. History of hepatic fibrosis. 4. History of chronic viral hepatitis. 5. Hypertension. 6. Rheumatoid arthritis. 7. Anemia of chronic disease. 8. 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 9. Hyponatremia probably secondary to cirrhosis and compulsive water drinking. 10. History of thrombocytopenia although with normal platelet count on admission. 11. Persistent nausea and vomiting with unknown etiology. The patient had been scheduled for an EGD this morning per Dr. Lira, e commerce specialist, but at this time it was cancelled. She does have a followup appointment with him in several weeks. 12. Elevated ammonia levels most likely secondary to ongoing liver cirrhosis. PLAN: I spoke with Dr. Lira this morning in regards to the patient and her present labs as well as her clinical presentation. He felt that at this time an EGD was not necessary in the acute setting and he would see her in a couple of weeks here at his [place] clinic. He agreed that we should start her on some Lactulose due to her elevated ammonia levels and her disorientation may be due to those elevated levels. He also recommended that she go home on some Lactulose. Potassium has normalized so I am going to start the Lactulose and watch her potassium and magnesium levels very closely. I have not seen a CT scan of her abdomen recently, so I am going to have that done. I have also started some Carafate and given her 1 dose of Phenergan. At this point, I feel like her current condition is part of an ongoing chronic picture. She will need to closely followup with Dr. Lira as well as Dr. Lee. We will monitor closely and followup as needed. Dr. Lee is the collaborating physician available for consultation. #[id number] [facility]
[2016-09-03] MEDS: SODIUM CHLORIDE 0.9% (FLUSH) 10 ML SYG IV PRN (20:18)
[2016-09-03] MEDS ORDERED: PROCHLORPERAZINE INJ 10 MG/2 ML VIAL IV PRN (21:19)
[2016-09-03] MEDS ORDERED: PROCHLORPERAZINE INJ 10 MG/2 ML VIAL ONE (21:27)
[2016-09-04 01:39] VITALS: BP 162/89; TEMP 97.6; O2SAT 92
--- NOTE | 2016-09-16 09:14 | DS ---
SUPERVISING PHYSICIAN: Franchesca Lee MD DISCHARGE DIAGNOSIS: 1. Bloody emesis as well as bloody stool, new onset. 2. Decreased level of consciousness requiring higher level of care, most likely due to pneumonia. 3. Electrolyte imbalance with severe hypokalemia and hypomagnesemia on admission. The patient has a history of chronic low potassium and low magnesium felt to be secondary to excessive water intake and ongoing liver dysfunction. Electrolytes today are within normal limits. 4. Hypertension and tachycardia possibly related to pain as the patient is on no current medications for rate control or blood pressure. 5. History of hepatic fibrosis. 6. History of chronic viral hepatitis. 7. Hypertension. 8. Rheumatoid arthritis. 9. Anemia of chronic disease. 10. 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 11. Hyponatremia probably secondary to cirrhosis and compulsive water drinking. 12. History of thrombocytopenia although with normal platelet count on admission. 13. Persistent nausea and vomiting with unknown etiology. The patient had been scheduled for an EGD this morning per Dr. Lira, necktie turner, but at this time it was cancelled. She does have a followup appointment with him in several weeks. 14. Elevated ammonia levels most likely secondary to ongoing liver cirrhosis. HISTORY OF PRESENT ILLNESS: This is a 66-year-old female patient with a significant history of persistent hyponatremia, hypokalemia, and hypomagnesemia secondary to nonalcoholic cirrhosis of the liver with chronically low albumin and stable renal function. She has a history of compulsive drinking of water and is followed closely by Dr. Lee and Dr. Dexter Paredes, disc pad grinder. On the day of admission, she presented o the Emergency Room secondary to nausea and vomiting. She had been throwing for 2 or 3 days prior to her admission. She had abdominal cramping, but no significant pain. 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 She presented to the Emergency Room. Her potassium was 2.2 and sodium 130, magnesium 1. She has been in the hospital multiple times for electrolyte imbalance as well as nausea and vomiting. She was admitted to the hospital. HOSPITAL COURSE: The patient received electrolyte replacement as well as fluids. She got antiemetics for nausea and vomiting and she was placed on fluid restrictions. Her prior admission to the hospital required almost 18 grams of magnesium before her hypomagnesemia was corrected. Dr. Paredes, her disc pad grinder, had been contacted during this stay and he agreed to the current plan. Her nausea and vomiting did not subside and although on the day of discharge most of her electrolytes had normalized, she was also found to have an ammonia of 103 and she was given p.o. Lactulose, but was unable to keep the Lactulose down due to the nausea and vomiting in spite of multiple antiemetics. On the evening of 09/03/16 prior to her discharge to [facility], her nausea and vomiting became so profound that she had bloody emesis as well as some bloody stool. She did not tolerate the Lactulose, so her ammonia was not corrected and she became very lethargic. I called [facility] where they accepted her on transfer. DISCHARGE PLAN: The patient will be discharged to [facility]. She will travel via ambulance. Her current records as well as her radiology films will be sent with her as well as a list of current medications. DISCHARGE MEDICATIONS: 1. Lactulose syrup. 2. Compazine. Dr. Lee is the collaborating physician and available for consultation. #[id number] [facility]
== END 2016-09-04 00:50 | disposition short-term general hospital (02) | DRG 641 ==
LOC: ER 11:17 → MS 15:21
PROVIDERS: ADMIT Nurse Practitioner Family; ATTEND Nurse Practitioner Family
DX: E87.6 Hypokalemia (principal); E72.20 Disorder of urea cycle metabolism, unspecified; K92.1 Melena; K92.0 Hematemesis; E83.42 Hypomagnesemia; E87.1 Hypo-osmolality and hyponatremia; B18.2 Chronic viral hepatitis C; K74.0 Hepatic fibrosis; K74.60 Unspecified cirrhosis of liver; M06.9 Rheumatoid arthritis, unspecified; I10 Essential (primary) hypertension; E88.09 Other disorders of plasma-protein metabolism, not elsewhere classified; F42.8 Other obsessive-compulsive disorder; E87.79 Other fluid overload; D63.8 Anemia in other chronic diseases classified elsewhere; Z90.49 Acquired absence of other specified parts of digestive tract; Z90.3 Acquired absence of stomach [part of]; Z79.899 Other long term (current) drug therapy; Z87.891 Personal history of nicotine dependence; Z91.040 Latex allergy status; Z91.14 Patient's other noncompliance with medication regimen